=== PATIENT | female | born 1995 | race Caucasian/White ===

== ENCOUNTER 2018-10-14 12:27 | Outpatient (CLI) | payer OTHER ==
--- NOTE | 2018-10-14 15:39 | RAD ---
LUMBAR SPINE 4 VIEW SERIES: Date: 10/14/18 INDICATION: Low back pain. FINDINGS: Minimal left convexity curvature at the mid lumbar spine is present. Flexion and extension views reve al no significant translational motion. Neutral view does not reveal a significant subluxation. Verte bral body heights and disc space heights are preserved. IMPRESSION: 1. No acute osseous abnormality of the lumbar spine. 2. Minimal left convexity curvature. POS: [facility]
--- NOTE | 2018-10-14 15:44 | RAD ---
CERVICAL SPINE RADIOGRAPH SERIES FIVE VIEWS: 10/24/18 INDICATION: Neck pain. FINDINGS: Dens is intact where visualized. Lateral masses of C1 reveal no evidence of malalignment. Flexion an d extension views reveal no abnormal translational motion. Neutral view, lateral projection, demonstr ates a mild focal kyphosis at C5. No significant subluxation. Prevertebral soft tissue structures are normal in caliber. Vertebral body heights and disc space heights are relatively well preserved. No acute facet malalignm ent. IMPRESSION: No acute osseous abnormality of the cervical spine. POS: [facility]
--- NOTE | 2018-10-14 16:55 | MRI ---
MRI OF LUMBAR SPINE WITH AND WITHOUT CONTRAST: 10/14/18 HISTORY: Chronic back pain. Chronic neck pain. Symptoms x10 years. 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 No surgery. TECHNIQUE: MRI of the lumbar spine is performed with and without intravenous gadolinium administration. Multisequential, multiplanar imaging is performed. FINDINGS: Appropriate T1 marrow signal intensity of the lumbar vertebrae. Lumbar spine vertebral body height is maintained. There is no fracture. No significant STIR hyperintensity to suggest vertebral body edema or ligamentous injury. Postcontrast images do not demonstrate any abnormal enhancement with regards to the vertebral bodies. There is no abnormal enhancement within the thecal sac including the cauda equina or conus medullari s. Symmetric signal intensity of the psoas muscles. There is appropriate signal intensity in the visuali zed solid organs. The conus medullaris terminates at the superior aspect of L1. T12-L1: Adequate disc hydration. No significant central canal stenosis. Neural foramina are patent. L1-L2: Adequate disc hydration. No significant central canal stenosis. Neural foramina are patent. L2-L3: Adequate hydration. No significant central canal stenosis. Neural foramina are patent. L3-L4: Adequate disc hydration. No significant central canal stenosis. Neural foramina are patent. L4-L5: Adequate disc hydration. No significant central canal stenosis. Neural foramina are patent. Mi ld bilateral facet hypertrophy. L5-S1: Adequate disc hydration. No significant central canal stenosis. Neural foramina are patent. IMPRESSION: 1. No pathologic enhancement with regards to the contents of the central spinal canal. 2. Appropriate marrow signal intensity of the lumbar vertebrae. No significant central canal jett nosis. neural foramina are patent. POS: [facility]
--- NOTE | 2018-10-14 17:31 | MRI ---
MRI CERVICAL SPINE WITH AND WITHOUT CONTRAST: 10/14/18 HISTORY: Chronic back pain. Chronic neck pain. Symptoms x10 years. TECHNIQUE: Cervical spine MRI is performed with and without intravenous gadolinium administration. Multisequenti al, multiplanar imaging is performed. FINDINGS: Appropriate T1 marrow signal intensity of the cervical vertebrae. Cervical spine vertebral body heigh t is maintained. No fracture. There is straightening of the normal cervical lordosis which is presumed to be due to patient positio n. There is 1 mm of anterolisthesis of C2 upon C3, 2 mm anterolisthesis of C3 upon C4, 1 mm anterolis thesis of C4 upon C5. No significant STIR hyperintensity to suggest vertebral body edema or ligamento us injury. The visualized brain parenchyma, cervicomedullary junction, cervical cord and the upper thoracic cord has a normal size and signal intensity. There is no pathologic enhancement. There is bilateral maxillary sinus disease. There is mild fullness of both palatine tonsils. C2-C3: No significant disc osteophyte complex. No significant central canal stenosis. Neural foramina are patent. C3-C4: No significant disc osteophyte complex. No significant central canal stenosis. Neural foramina are patent. C4-C5: No significant disc osteophyte complex. No significant central canal stenosis. Neural foramina are patent. C5-C6: No significant disc osteophyte complex. No significant central canal stenosis. Neural foramina are patent. C6-C7: No significant central canal stenosis. Neural foramina are patent. C7-T1: No significant central canal stenosis. Neural foramina are patent. IMPRESSION: 1. No significant central canal stenosis or neural foraminal narrowing. 2. No abnormal enhancement with regards to the visualized brain parenchyma and spinal cord. 3. Bilateral maxillary sinus disease. POS: [facility]
--- NOTE | 2018-10-14 18:38 | MRI ---
MRI THORACIC SPINE WITH AND WITHOUT CONTRAST 10/14/18 HISTORY: Neck pain. Back pain. Pain is chronic and has been present for approximately 10 years. The patient young s a history of a cystic lesion in the thoracic spine. COMPARISON: None. TECHNIQUE: MRI of the thoracic spine is performed with and without intravenous gadolinium administration. Multis equential, multiplanar imaging is performed. FINDINGS: There is appropriate T1 marrow signal intensity of thoracic vertebrae. Thoracic spine vertebral body height is maintained. There is no fracture. Irregularity involving the superior end plate of T7 likel y due to chronic process. There is mild loss of vertebral body height. No STIR hyperintensity to sugg est vertebral body edema or ligamentous injury. The visualized mediastinum, lung parenchyma, and solid organs are unremarkable. The thoracic cord has a normal size and signal intensity. No cord expansion. No cord malacia. There i s no abnormal enhancement with regards to the thoracic cord. There is no significant central canal stenosis or neural foraminal narrowing throughout the thoracic spine. On the postcontrast images there is no abnormal enhancement with regards to the cord. No abnor mal enhancement with regards to the vertebral bodies. There is an intrinsic T2 hyperintense lesion measuring 4.7 cm in craniocaudal dimension noted at the T11 and T12 level. On the postcontrast images, there is peripheral enhancement along the posterior ma rgin of this lesion. This lesion appears to be extradural. Small septation is noted. This lesion appe ars to be contiguous with the left neural foramen at T11. Based on the images provided, there does ap pear to be moderate narrowing of the left neural foramen at T11. 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 There is extension into the left neural foramen at T11 with moderate left foraminal narrowing. POS: [facility]
== END 2018-10-14 12:28 | disposition home or self-care (01) ==
LOC: SCSMRI 12:27
PROVIDERS: ATTEND Surgery
DX: M54.2 Cervicalgia (principal); M54.6 Pain in thoracic spine; M54.5 Low back pain; D48.0 Neoplasm of uncertain behavior of bone and articular cartilage; M43.8X6 Other specified deforming dorsopathies, lumbar region; M48.04 Spinal stenosis, thoracic region; J32.0 Chronic maxillary sinusitis; R93.7 Abnormal findings on diagnostic imaging of other parts of musculoskeletal system; M53.84 Other specified dorsopathies, thoracic region
CPT/HCPCS: 72050; 72120; 72156; 72157; 72158

== ENCOUNTER 2018-10-27 11:00 | Day surgery (SDC) | payer OTHER ==
[2018-10-26 09:33] VITALS: BMI 22.0
[2018-10-27 11:59] LABS: BHCG - Serum Negative (NEGATIVE); Pregs Control Background? CLEAR/WHITE (CLR/WHITE); Pregs Control Bar Appear? YES (CONTROL BAR)
[2018-10-27] MEDS ORDERED: Midazolam HCl 2 mg/2 ml Vial ONE (12:26)
[2018-10-27] MEDS ORDERED: Fentanyl 100 MCG/2 ML VIAL ONE ×3 (12:33→14:16)
[2018-10-27] MEDS ORDERED: Ferric Subsulfate 8 ML BOT ONE (13:08)
[2018-10-27] MEDS ORDERED: Dexamethasone 20 MG/5 ML VIAL ONE (22:36)
[2018-10-27] MEDS ORDERED: PROPOFOL 200 MG/20 ML VIAL ONE (22:36)
[2018-10-27] MEDS ORDERED: Ondansetron PF 4 MG/2 ML Vial ONE (22:36)
[2018-10-27] MEDS ORDERED: Lidocaine 1% PF 5 ML VIAL ONE (22:36)
--- NOTE | 2018-10-28 10:12 | OP ---
DATE OF PROCEDURE: 10/27/2018 PREOPERATIVE DIAGNOSES: Chronic tonsillitis and recurrent tonsillitis. POSTOPERATIVE DIAGNOSES: Chronic tonsillitis and recurrent tonsillitis. PROCEDURE PERFORMED: Tonsillectomy over 12 years of age. DESCRIPTION OF PROCEDURE: After consent was obtained, the patient was identified, brought to the operating room, and placed on the operating table in the supine position. General endotracheal anesthesia and intravenous access were obtained and we proceeded with positioning the patient for oropharyngeal surgery. Oropharyngeal exposure was obtained with a Naty-Chauncey mouth gag after a head drape was placed and secured with a towel clip. The Naty-Chauncey mouth gag was then suspended from the Angulo tray and palatal elevation was achieved with a red rubber catheter. The right tonsil was addressed first. We used a curved Allis to grasp the tonsil and retract it medially as an anterior pillar incision was made with a #12 blade. The retrotonsillar fascial plane was then established and blunt dissection was performed with the suction cautery. Blood vessels were anticipated, identified, and cauterized as they were encountered. Ultimately, dissection was carried to the posterior tonsillar pillar mucosa which was incised hemostatically, as well as the base of tongue connection. The tonsil was then passed off as a specimen and bleeding points within the tonsillar bed were cauterized under direct visualization. We subsequently turned our attention to the contralateral side, where using a similar technique, a near identical procedure was performed. Again, the tonsil was grasped and retracted medially with a curved Allis as an anterior pillar incision was made with a #12 blade. The retrotonsillar fascial plane was established and while the anterior pillar was retracted medially, the hemostatic blunt dissection of the tonsil with a suction cautery was performed with blood vessels anticipated, identified, and cauterized as they were encountered. Again, dissection continued to the base of tongue and posterior tonsillar pillar mucosa which was incised in a hemostatic fashion. The tonsillar beds were then carefully inspected and bleeding points were identified and cauterized with a suction cautery. After this portion of the procedure, hemostasis was completely obtained. The patient's oral cavity was copiously irrigated with iced saline and subsequently suctioned. We then used the red rubber catheter to suction the gastric contents and the patient was subsequently aroused, awakened, and extubated without difficulty and transported to the recovery room in stable condition. There were no complications. Job ID: [id number]
== END 2018-10-27 15:55 | disposition home or self-care (01) ==
LOC: SDC 11:00
PROVIDERS: ATTEND Specialist
PROC: 0CTPXZZ Resection of Tonsils, External Approach (ICD-10-PCS; principal; 2018-10-27)
DX: J35.01 Chronic tonsillitis (principal); J03.91 Acute recurrent tonsillitis, unspecified; F17.200 Nicotine dependence, unspecified, uncomplicated; J35.8 Other chronic diseases of tonsils and adenoids
CPT/HCPCS: 36415; 84703; 85014; 88304; 96374; J1100; J2001; J2250; J2405; J2704; J3010

== ENCOUNTER 2021-08-01 13:04 | Outpatient (CLI) | payer OTHER | END 2021-08-01 13:05 | disposition home or self-care (01) | LOC: BICULT 13:04 | PROVIDERS: ATTEND Nurse Practitioner Family | DX: R22.2 Localized swelling, mass and lump, trunk (principal) | CPT/HCPCS: 76999 ==

== ENCOUNTER 2021-08-24 13:20 | Emergency (ER) | payer OTHER ==
[2021-08-24] MEDS ORDERED: Lidocaine 1% PF 5 ML VIAL ONE (14:29)
[2021-08-24] MEDS ORDERED: Boostrix 0.5 ML (Tdap) VIAL ONE (14:50)
== END 2021-08-24 15:01 | disposition home or self-care (01) ==
LOC: ERS 13:20
DX: S61.412A Laceration without foreign body of left hand, initial encounter (principal); W26.8XXA Contact with other sharp object(s), not elsewhere classified, initial encounter
CPT/HCPCS: 12001; 90471; 90715

== ENCOUNTER 2021-12-29 09:00 | Outpatient (CLI) | payer OTHER ==
[2021-12-29] MEDS ORDERED: Magnevist 469MG/ML 20 ML VIAL ONE (11:53)
== END 2021-12-29 09:01 | disposition home or self-care (01) ==
LOC: MRI 09:00
PROVIDERS: ATTEND Physician Assistant
DX: R22.2 Localized swelling, mass and lump, trunk (principal)
CPT/HCPCS: 72158

== ENCOUNTER 2022-04-07 14:31 | Outpatient (CLI) | payer OTHER ==
[~2022-04-07 14:31] MED LIST: Magnevist 469MG/ML 20 ML VIAL ONE
== END 2022-04-07 14:32 | disposition home or self-care (01) ==
LOC: TBSIIMAG 14:31
PROVIDERS: ATTEND Surgery
DX: G95.89 Other specified diseases of spinal cord (principal)
CPT/HCPCS: 72157; A9579